=== PATIENT | female | born 1990 | race Caucasian/White ===

== ENCOUNTER 2018-01-07 10:07 | Inpatient (IN) | payer BC ==
[2018-01-07 11:25] LABS: ADD UMIC YES; UR AMORPHOUS CRYSTAL FEW /HPF (NONE SEEN); UR ASCORBIC ACID 40 mg/dL (NEGATIVE); UR BACTERIA FEW /HPF (NONE SEEN); UR BILIRUBIN (Dip) NEGATIVE (NEGATIVE); UR BLOOD (Dip) NEGATIVE (NEGATIVE); UR CLARITY CLOUDY (CLEAR); UR COLOR YELLOW (YELLOW); UR GLUCOSE (Dip) NEGATIVE (NEGATIVE); UR KETONES (Dip) NEGATIVE (NEGATIVE); UR LEUKOCYTE ESTERASE (Dip) TRACE Leu/ul (NEGATIVE); UR NITRITE (Dip) NEGATIVE (NEGATIVE); UR RBC 0 /HPF (0-5); UR SPECIFIC GRAVITY (Dip) 1.019 (1.003-1.030); UR SQUAMOUS EPITHELIAL CELL FEW /HPF (FEW); UR TOTAL PROTEIN (Dip) NEGATIVE (NEGATIVE); UR UROBILINOGEN (Dip) 2+ mg/dL (NEGATIVE); UR WBC 0 /HPF (0-5)
[2018-01-07] MEDS: CEFEPIME 2GM/50 ML (PMX) 50 ML IVPB ×3 (11:26→22:33)
[2018-01-07] MEDS: ACETAMINOPHEN 325 MG TAB PO (11:26)
[2018-01-07] MEDS: SODIUM CHLORIDE 0.9% 1L BAG IV* (11:27)
[2018-01-07 11:33] LABS: WHITE BLOOD COUNT 16.1 10^3/ul (4.8-10.8)
[2018-01-07 11:33] LABS: ABNORMAL IP MESSAGE 1; HEMATOCRIT 33.4 % (37.0-47.0); HEMOGLOBIN 11.1 g/dl (12.0-16.0); MEAN CORPUSCULAR HEMOGLOBIN 28.8 pg (29.0-33.0); MEAN CORPUSCULAR HGB CONC 33.2 g/dl (32.0-37.0); MEAN CORPUSCULAR VOLUME 86.5 fl (82.0-101.0); MEAN PLATELET VOLUME 9.4 fl (7.4-10.4); PLATELET COUNT 275 10^3/UL (140-415); RED BLOOD COUNT 3.86 10^6/ul (4.20-5.40); RED CELL DISTRIBUTION WIDTH 15.1 % (11.5-14.5)
[2018-01-07 11:36] LABS: ADD MAN DIFF? YES; POSITIVE DIFF @See below
[2018-01-07 11:53] LABS: ALANINE AMINOTRANSFERASE 202 IU/L (13-69); ALBUMIN 4.1 g/dl (3.3-4.9); ALBUMIN/GLOBULIN RATIO 1.07; ALKALINE PHOSPHATASE 157 IU/L (42-121); ANION GAP 18 (8-16); ASPARTATE AMINO TRANSFERASE 204 IU/L (15-46); BILIRUBIN,INDIRECT 0.2 mg/dl (0-1.1); BILIRUBIN,TOTAL 0.2 mg/dl (0.2-1.3); BLOOD UREA NITROGEN 16 mg/dl (7-20); CALCIUM 8.9 mg/dl (8.4-10.2); CARBON DIOXIDE 27 mmol/L (21-31); CHLORIDE 102 mmol/L (97-110); CREATININE 0.68 mg/dl (0.44-1.00); GLUCOSE 76 mg/dl (70-220); POTASSIUM 4.2 mmol/L (3.5-5.1); SODIUM 143 mmol/L (135-144); TOTAL PROTEIN 7.9 g/dl (6.1-8.1)
[2018-01-07 11:56] LABS: ANISOCYTOSIS 1+ (0-0); BAND NEUTROPHILS #M 1.1 10^3/ul (0.0-0.6); BAND NEUTROPHILS % (M) 7 % (0-4); EOSINOPHILS % (M) 2 % (0-7); LYMPHOCYTES #M 9.8 10^3/ul (0.8-2.9); LYMPHOCYTES % (M) 61 % (15-51); MICROCYTOSIS 1+ (0-0); MONOCYTE #M 0.9 10^3/ul (0.3-0.9); MONOCYTES % (M) 6 % (0-11); PLATELET ESTIMATE NORMAL; SEGMENTED NEUTROPHILS (M) % 24 % (39-77); SMUDGE%M 22 % (0-0)
[2018-01-07 12:05] LABS: TROPONIN-I < 0.012 ng/ml (0.00-0.12)
[2018-01-07 12:06] LABS: INR 0.91; PROTIME 12.3 Sec (11.9-14.9)
[2018-01-07 12:07] LABS: PARTIAL THROMBOPLASTIN TIME 33.5 Sec (25.0-35.0)
[2018-01-07 12:15] LABS: LACTIC ACID 1.3 mmol/L (0.5-2.0)
[2018-01-07] MEDS: VANCOMYCIN 1 GM (PMX) 250 ML IVPB (12:15)
[2018-01-07] MEDS ORDERED: ACETAMINOPHEN 325 MG TAB PO (13:00)
[2018-01-07] MEDS ORDERED: ONDANSETRON 4 MG INJ IV ×2 (13:00→14:00)
[2018-01-07 13:51] LABS: HIV 1&2 ANTIBODY NEGATIVE (NEGATIVE)
[2018-01-07 13:57] LABS: LACTIC ACID 0.9 mmol/L (0.5-2.0)
[2018-01-07] MEDS ORDERED: LORAZEPAM 2 MG INJ IV (14:00)
[2018-01-07] MEDS ORDERED: VANCOMYCIN IV PER PHARMACY XX (14:00)
[2018-01-07] MEDS ORDERED: NACL 0.9% 3 ML SYG IV (14:00)
[2018-01-07] MEDS: SOD CHLORIDE 0.9% 100 ML (15:38)
[2018-01-07] MEDS: IOHEXOL 300MG/ML 150 ML BTL (15:39)
[2018-01-07] MEDS: SOD CHLORIDE 0.9% 1,000 ML IV ×2 (15:58→21:50)
[2018-01-07] MEDS: clonAZEPAM 0.5 MG TAB PO ×2 (17:24→21:18)
[2018-01-07 19:01] LABS: VALPROATE 39 ug/ml (50-100)
[2018-01-07] MEDS: FAMOTIDINE 20 MG TAB PO (20:09)
[2018-01-07] MEDS: DIVALPROEX (EC) 250 MG TAB PO (20:10)
[2018-01-07] MEDS: GABAPENTIN 100 MG CAP PO (20:10)
[2018-01-07] MEDS: VANCOMYCIN 750 MG in DEXTROSE 5% 150 ML IVPB (20:11)
[2018-01-07] MEDS: METHADONE 10 MG TAB PO (20:11)
[2018-01-07] MEDS: QUETIAPINE 100 MG TAB PO (22:36)
[2018-01-08] MEDS: ACETAMINOPHEN 325 MG TAB PO (02:03)
[2018-01-08] MEDS: SOD CHLORIDE 0.9% 1,000 ML IV ×3 (04:24→17:15)
[2018-01-08] MEDS: VANCOMYCIN 750 MG in DEXTROSE 5% 150 ML IVPB ×4 (04:26→22:27)
[2018-01-08] MEDS: CEFEPIME 2GM/50 ML (PMX) 50 ML IVPB ×3 (05:37→21:36)
[2018-01-08 06:07] LABS: ADD MAN DIFF? NO
[2018-01-08 06:23] LABS: WHITE BLOOD COUNT 8.3 10^3/ul (4.8-10.8)
[2018-01-08 06:23] LABS: BASOPHILS % 0.2 % (0.0-2.0); EOSINOPHILS # 0.3 10^3/ul (0.0-0.5); EOSINOPHILS % 3.6 % (0.0-7.0); HEMATOCRIT 30.9 % (37.0-47.0); HEMOGLOBIN 10.1 g/dl (12.0-16.0); MEAN CORPUSCULAR HEMOGLOBIN 28.7 pg (29.0-33.0); MEAN CORPUSCULAR HGB CONC 32.7 g/dl (32.0-37.0); MEAN CORPUSCULAR VOLUME 87.8 fl (82.0-101.0); MEAN PLATELET VOLUME 9.7 fl (7.4-10.4); MONOCYTE # 0.7 10^3/ul (0.3-0.9); MONOCYTES % 8.7 % (0.0-11.0); NEUTROPHIL # 2.3 10^3/ul (1.6-7.5); NEUTROPHILS % 27.3 % (39.0-77.0); PLATELET COUNT 218 10^3/UL (140-415); RED BLOOD COUNT 3.52 10^6/ul (4.20-5.40); RED CELL DISTRIBUTION WIDTH 15.4 % (11.5-14.5)
[2018-01-08 06:29] LABS: LACTIC ACID 0.8 mmol/L (0.5-2.0)
[2018-01-08 06:37] LABS: ALANINE AMINOTRANSFERASE 136 IU/L (13-69); ALBUMIN 3.1 g/dl (3.3-4.9); ALKALINE PHOSPHATASE 114 IU/L (42-121); ANION GAP 14 (8-16); ASPARTATE AMINO TRANSFERASE 100 IU/L (15-46); BLOOD UREA NITROGEN 14 mg/dl (7-20); CARBON DIOXIDE 24 mmol/L (21-31); CHLORIDE 109 mmol/L (97-110); CREATININE 0.63 mg/dl (0.44-1.00); GLUCOSE 100 mg/dl (70-220); PHOSPHORUS 4.3 mg/dl (2.5-4.9); POTASSIUM 4.2 mmol/L (3.5-5.1); SODIUM 143 mmol/L (135-144); TOTAL PROTEIN 5.9 g/dl (6.1-8.1)
[2018-01-08] MEDS: METHADONE 10 MG TAB PO ×2 (10:50→21:33)
[2018-01-08] MEDS: GABAPENTIN 100 MG CAP PO ×3 (10:50→21:33)
[2018-01-08] MEDS: DIVALPROEX (EC) 250 MG TAB PO ×2 (10:51→21:32)
[2018-01-08] MEDS: clonAZEPAM 0.5 MG TAB PO ×4 (10:51→21:33)
[2018-01-08] MEDS: FAMOTIDINE 20 MG TAB PO ×2 (11:05→21:32)
[2018-01-08] MEDS: THIAMINE 100 MG TAB PO (15:41)
[2018-01-08] MEDS: FOLIC ACID 1 MG TAB PO (15:41)
[2018-01-08 20:12] LABS: VANCOMYCIN,TROUGH 11.5 ug/ml (10.0-20.0)
[2018-01-08] MEDS ORDERED: QUETIAPINE 100 MG TAB PO (21:00)
[2018-01-08] MEDS: QUETIAPINE 100 MG TAB PO (21:32)
[2018-01-09] MEDS: traMADol 50 MG TAB PO (01:03)
[2018-01-09] MEDS: CEFEPIME 2GM/50 ML (PMX) 50 ML IVPB (05:31)
[2018-01-09] MEDS ORDERED: VANCOMYCIN 1 GM 250 ML IVPB (12:00)
[2018-01-13 13:42] LABS: KLONOPIN (CLONAZEPAM) < 10 mcg/L (30-60)
== END 2018-01-09 07:00 | disposition left against medical advice (07) | DRG 872 ==
LOC: E/R 10:07 → MS2 01-08 23:19
DX: A41.9 Sepsis, unspecified organism (principal); F11.20 Opioid dependence, uncomplicated; G40.909 Epilepsy, unspecified, not intractable, without status epilepticus; F10.10 Alcohol abuse, uncomplicated; R16.0 Hepatomegaly, not elsewhere classified; R16.1 Splenomegaly, not elsewhere classified; D64.9 Anemia, unspecified; F17.210 Nicotine dependence, cigarettes, uncomplicated; E66.9 Obesity, unspecified; Z59.0 Homelessness; Z68.31 Body mass index [BMI] 31.0-31.9, adult
CPT/HCPCS: 71045; 72131; 74176; 80053; 80164; 80202; 80346; 81001; 81025; 83605; 83735; 84100; 84484; 84703; 85025; 85610; 85730; 86703; 87040; 87086; 87400; 93005; 96365; 96366; 96368; 99285-25